=== PATIENT | male | born 1990 | race African-American/Black ===

== ENCOUNTER 2019-04-17 16:04 | Emergency (ER) | END 2019-04-17 17:40 | disposition left against medical advice (07) | LOC: ER 16:04 | DX: Z53.21 Procedure and treatment not carried out due to patient leaving prior to being seen by health care provider (principal) ==

== ENCOUNTER 2019-07-29 04:01 | Emergency (ER) | payer SELFPAY ==
[2019-07-29 07:50] VITALS: BP 128/82
[2019-07-29 08:09] LABS: ABSOLUTE EOSINOPHILS # (AUTO) 0.1 10^3/uL (0.0-0.6); ABSOLUTE LYMPHOCYTES (AUTO) 1.5 10^3/uL (0.5-4.7); ABSOLUTE MONOCYTES (AUTO) 0.6 10^3/uL (0.1-1.4); ABSOLUTE NEUT (AUTO) 1.6 10^3/uL (1.7-8.2); BASOPHILS % (AUTO) 0.9 % (0-2); EOSINOPHILS % (AUTO) 3.2 % (0-6); HEMATOCRIT 41.5 % (37.9-51.0); HEMOGLOBIN 14.6 g/dL (13.5-17.0); LYMPHOCYTES % (AUTO) 38.9 % (13-45); MEAN CORPUSCULAR HEMOGLOBIN 34.2 pg (27.0-33.4); MEAN CORPUSCULAR HGB CONC 35.1 g/dL (32.0-36.0); MEAN CORPUSCULAR VOLUME 97 fl (80-97); MONOCYTES % (AUTO) 15.7 % (3-13); PLATELET COUNT 182 10^3/uL (150-450); RED BLOOD COUNT 4.26 10^6/uL (4.35-5.55); RED CELL DISTRIBUTION WIDTH 12.5 % (11.5-14.0); SEGMENTED NEUTROPHILS % (AUTO) 41.3 % (42-78); TOTAL CELLS COUNTED % (AUTO) 100 %; WHITE BLOOD COUNT 3.9 10^3/uL (4.0-10.5)
--- NOTE | 2019-07-29 08:11 | ER Document Report ---
ED Cardiac - General Chief Complaint: Chest Pain Stated Complaint: CHEST PAIN Time Seen by Provider: 07/29/19 08:01 Notes: Patient is a 28-year-old male who presents the emergency department with a chief complaint of chest pain. Patient states that the pain has been on and off for the past 2 months. Patient states that it is a sharp, stabbing feeling. Sometimes is short of breath. He has been trying to take mhxi-khc-qacujes antacids, such as Tums, but has had little relief. Patient states that his father had a heart attack in his early 40s. Patient denies any vomiting. TRAVEL OUTSIDE OF THE [place] IN LAST 30 DAYS: No - Related Data Allergies/Adverse Reactions: No Known Allergies Allergy (Verified 04/17/19 16:07) Past Medical History - Social History Smoking Status: Never Smoker Frequency of alcohol use: Rare Drug Abuse: Marijuana Family History: Reviewed & Not Pertinent Patient has suicidal ideation: No Patient has homicidal ideation: No Review of Systems - Review of Systems Notes: REVIEW OF SYSTEMS: CONSTITUTIONAL : Denies recent illness. Denies recent unintentional weight loss. Denies fever, chills, or sweats. EENT: Denies eye, ear, throat, or mouth pain, discharge, or symptoms. Denies nasal or sinus congestion. CARDIOVASCULAR: See HPI. RESPIRATORY: See HPI. GASTROINTESTINAL: Denies nausea, vomiting, and diarrhea. Denies abdominal pain. Denies constipation. GENITOURINARY: Denies difficulty urinating, burning, blood in urine, urgency or frequency. MUSCULOSKELETAL: Denies neck and back pain. Denies joint pain or swelling. SKIN: Denies rash, itchiness, or lesions HEMATOLOGIC : Denies easy bruising or bleeding. LYMPHATIC: Denies swollen, painful, enlarged glands. NEUROLOGICAL: Denies no numbness or tingling denies weakness. Denies headache. Denies altered mental status. Denies alteration in speech. PSYCHIATRIC: Denies stress, anxiety, alteration in sleep patterns, or depression. All other systems reviewed and negative. Physical Exam - Vital signs Vitals: Temp Pulse Resp BP Pulse Ox 97.9 F 70 20 140/87 H 100 07/29/19 04:11 07/29/19 04:11 07/29/19 04:11 07/29/19 04:11 07/29/19 04:11 - Notes Notes: PHYSICAL EXAMINATION: GENERAL: Appears well, healthy, well-nourished, no acute distress. HEAD: Normocephalic, atraumatic. EYES: PERRL, conjunctiva normal, all extraocular movements intact, sclera nonicteric ENT: Moist mucous membranes. NECK: Supple, no noticeable swelling, redness, rash. Normal range of motion. LUNGS: Equal breath sounds bilaterally and clear to auscultation. No wheezes rales or rhonchi. CARDIOVASCULAR: S1-S2, regular rate, regular rhythm. Radial pulses 2+, normal. ABDOMEN: Normoactive bowel sounds. Soft, nontender, no guarding, no rebound tenderness, and no masses palpated. EXTREMITIES: Normal strength and range of motion, no pitting or edema. No cyanosis. NEUROLOGICAL: Moves all extremities upon command. Strength 5/5 in all extremities. PSYCH: Normal mood, normal affect. SKIN: Warm, dry. No rash, lesions, ulcerations noted. Normal skin turgor. Course - Re-evaluation Re-evalutation: 07/29/19 08:12 The patient has chosen to leave the facility against medical advice. The relevant issues have been reviewed and discussed with the patient and family at the bedside. At the time of this assessment there is no indication for involuntary commitment. The patient is alert, oriented, and able to express clearly their reasoning for not wanting to remain in the emergency department for further treatment. The patient is not clinically psychotic, intoxicated, and denies and suicidal ideation. Differential or suspected diagnoses based on medical screening exam: GERD, gastritis, AMI (less likely), pulmonary emboli (less likely). The patient is aware of the concerning diagnoses and acknowledges understanding of the reasons for the following recommendations: To return for further evaluation. The following recommendations/services were offered and refused: To stay and to have interpretation of lab results. The following risks were explained: , permanent disability, loss of function, continuing chest pain. Clinical impression: Patient is competent to make decisions regarding the m edical that is being offered. - Vital Signs Vital signs: Temp Pulse Resp BP Pulse Ox 98.2 F 65 16 128/82 H 99 07/29/19 07:49 07/29/19 07:49 07/29/19 07:49 07/29/19 07:49 07/29/19 07:49 - Laboratory Result Diagrams: 07/29/19 07:47 07/29/19 07:47 - EKG Interpretation by Me Additional EKG results interpreted by me: 07/29/19 08:11 Sinus rhythm. Rate 60. FL 196; QRS 84; QT 392; QTc 392. No ST elevations or depressions noted. Discharge - Discharge Clinical Impression: Chest pain Qualifiers: Chest pain type: unspecified Qualified Code(s): R07.9 - Chest pain, unspecified Condition: Stable Disposition: AGAINST MEDICAL ADVICE
[2019-07-29 08:18] LABS: ALBUMIN 4.1 g/dL (3.5-5.0); ALKALINE PHOSPHATASE 38 U/L (38-126); ANION GAP 7 (5-19); ASPARTATE AMINO TRANSFERASE 31 U/L (17-59); BILIRUBIN,TOTAL 0.4 mg/dL (0.2-1.3); BLOOD UREA NITROGEN 6 mg/dL (7-20); CALCIUM 9.3 mg/dL (8.4-10.2); CARBON DIOXIDE 28 mmol/L (22-30); CHLORIDE 108 mmol/L (98-107); CREATINE KINASE 151 U/L (55-170); GLUCOSE 104 mg/dL (75-110); POTASSIUM 4.2 mmol/L (3.6-5.0); TOTAL PROTEIN 6.9 g/dL (6.3-8.2)
[2019-07-29 08:30] LABS: CREATINE KINASE MB 1.53 ng/mL (<4.55)
[2019-07-29 08:35] LABS: TROPONIN I < 0.012 ng/mL
[2019-07-29 09:43] LABS: URINE AMPHETAMINES SCREEN NEGATIVE; URINE BARBITURATES SCREEN NEGATIVE; URINE BENZODIAZEPINES SCREEN NEGATIVE; URINE COCAINE SCREEN NEGATIVE; URINE METHADONE SCREEN NEGATIVE; URINE PHENCYCLIDINE SCREEN NEGATIVE
[2019-07-29 09:45] LABS: URINE MARIJUANA (THC) SCREEN UNCONFIRMED POSITIVE
--- NOTE | 2019-07-30 11:49 | EKG REPORT ---
SEVERITY:- ABNORMAL ECG - SINUS RHYTHM NONSPECIFIC T ABNORMALITIES, INFERIOR LEADS : Confirmed by: Vy Teresa MD 30-Jul-2019 11:48:32
== END 2019-07-29 08:20 | disposition left against medical advice (07) ==
LOC: ER 04:01
DX: R07.9 Chest pain, unspecified (principal); R06.02 Shortness of breath; F12.10 Cannabis abuse, uncomplicated; Z82.49 Family history of ischemic heart disease and other diseases of the circulatory system; Z53.20 Procedure and treatment not carried out because of patient's decision for unspecified reasons
CPT/HCPCS: 36415; 80053; 80307; 82550; 82553; 84484; 85025; 93005; 93010; 99285

== ENCOUNTER 2019-07-30 10:47 | Emergency (ER) | payer SELFPAY ==
[2019-07-30] MEDS ORDERED: ASPIRIN 81 MG TABLET, CHEWABLE PO ONE (11:16)
--- NOTE | 2019-07-30 11:18 | ER Document Report ---
ED Medical Screen (RME) - General Chief Complaint: Chest Pain Stated Complaint: CHEST PAIN Time Seen by Provider: 07/30/19 11:11 Mode of Arrival: Ambulatory Information source: Patient Notes: 28-year-old male presents today with complaints of midsternal chest pain for the past 3 to 4 months on and off. He reports the chest pain will come no matter what he is doing sitting at rest or working. Also reports he had syncopal episodes 3-4 times in the past year. Reports his father at a young age from a heart attack. He denies IV drug use. Denies past medical history such as asthma cardiac disease diabetes. Patient reports he smokes marijuana does not vape. Denies cocaine, cold medications denies recent trip denies energy drinks. Patient was seen here yesterday but eloped before he received his results. Dictation of this chart was performed using voice recognition software; therefore, there may be some unintended grammatical errors. I have greeted and performed a rapid initial assessment of this patient. A comprehensive ED assessment and evaluation of the patient, analysis of test results and completion of the medical decision making process will be conducted by additional ED providers. TRAVEL OUTSIDE OF THE [place] IN LAST 30 DAYS: No - Related Data Allergies/Adverse Reactions: No Known Allergies Allergy (Verified 07/30/19 10:58) Past Medical History - Social History Frequency of alcohol use: None Drug Abuse: Marijuana
--- NOTE | 2019-07-30 11:49 | EKG REPORT ---
SEVERITY:- ABNORMAL ECG - SINUS RHYTHM NONSPECIFIC T ABNORMALITIES, INFERIOR LEADS : Confirmed by: Vy Teresa MD 30-Jul-2019 11:48:29
[2019-07-30 11:52] LABS: ABSOLUTE EOSINOPHILS # (AUTO) 0.1 10^3/uL (0.0-0.6); ABSOLUTE LYMPHOCYTES (AUTO) 1.4 10^3/uL (0.5-4.7); ABSOLUTE MONOCYTES (AUTO) 0.5 10^3/uL (0.1-1.4); ABSOLUTE NEUT (AUTO) 1.8 10^3/uL (1.7-8.2); BASOPHILS % (AUTO) 0.6 % (0-2); EOSINOPHILS % (AUTO) 2.5 % (0-6); HEMOGLOBIN 14.7 g/dL (13.5-17.0); LYMPHOCYTES % (AUTO) 36.1 % (13-45); MEAN CORPUSCULAR HGB CONC 34.9 g/dL (32.0-36.0); MEAN CORPUSCULAR VOLUME 97 fl (80-97); MONOCYTES % (AUTO) 12.9 % (3-13); PLATELET COUNT 185 10^3/uL (150-450); RED BLOOD COUNT 4.32 10^6/uL (4.35-5.55); RED CELL DISTRIBUTION WIDTH 12.2 % (11.5-14.0); SEGMENTED NEUTROPHILS % (AUTO) 47.9 % (42-78); TOTAL CELLS COUNTED % (AUTO) 100 %; WHITE BLOOD COUNT 3.8 10^3/uL (4.0-10.5)
[2019-07-30 12:09] LABS: ALBUMIN 4.2 g/dL (3.5-5.0); ALKALINE PHOSPHATASE 36 U/L (38-126); ANION GAP 7 (5-19); ASPARTATE AMINO TRANSFERASE 34 U/L (17-59); BILIRUBIN,DIRECT 0.1 mg/dL (0.0-0.4); BILIRUBIN,TOTAL 0.5 mg/dL (0.2-1.3); BLOOD UREA NITROGEN 10 mg/dL (7-20); CALCIUM 9.4 mg/dL (8.4-10.2); CARBON DIOXIDE 27 mmol/L (22-30); CHLORIDE 105 mmol/L (98-107); GLUCOSE 111 mg/dL (75-110); POTASSIUM 4.1 mmol/L (3.6-5.0)
--- NOTE | 2019-07-30 12:37 | RADIOLOGY REPORT (SQ) ---
EXAM DESCRIPTION: CHEST 2 VIEWS COMPLETED DATE/TIME: 07/30/2019 12:29 pm REASON FOR STUDY: chest pain COMPARISON: None. EXAM PARAMETERS: NUMBER OF VIEWS: two views TECHNIQUE: Digital Frontal and Lateral radiographic views of the chest acquired. RADIATION DOSE: NA LIMITATIONS: none FINDINGS: LUNGS AND PLEURA: Minimal bandlike atelectasis in the right posterior costophrenic sulcus. Lungs are otherwise free of focal infiltrates. No pleural effusion. No pneumothorax. MEDIASTINUM AND HILAR STRUCTURES: No masses or contour abnormalities. HEART AND VASCULAR STRUCTURES: Heart normal size. No evidence for failure. BONES: No acute findings. HARDWARE: None in the chest. OTHER: No other significant finding. IMPRESSION: Minimal posterior right basilar atelectasis. TECHNICAL DOCUMENTATION: JOB ID: [id number] [employer]- All Rights Reserved Reading location - IP/workstation name: [email or web address]
[2019-07-30 13:44] VITALS: BP 140/97
== END 2019-07-30 13:47 | disposition left against medical advice (07) ==
LOC: ER 10:47
DX: Z53.21 Procedure and treatment not carried out due to patient leaving prior to being seen by health care provider (principal); R07.9 Chest pain, unspecified; F12.90 Cannabis use, unspecified, uncomplicated
CPT/HCPCS: 36415; 71046; 80053; 84484; 85025; 93005; 93010; 99285

== ENCOUNTER 2019-09-07 19:17 | Emergency (ER) | payer SELFPAY ==
[2019-09-07 19:50] VITALS: BP 129/75
[2019-09-07] MEDS ORDERED: IBUPROFEN 600 MG TABLET PO ONE (20:41)
[2019-09-07] MEDS ORDERED: ACETAMINOPHEN 325 MG TABLET PO ONE (20:41)
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
--- NOTE | 2019-09-07 21:52 | RADIOLOGY REPORT (SQ) ---
EXAM DESCRIPTION: XR CHEST 2 VIEWS COMPLETED DATE/TME: 09/07/2019 20:41 CLINICAL HISTORY: 28 years, Male, fever/cough EXAM DESCRIPTION: CLINICAL HISTORY: fever/cough COMPARISON: None. FINDINGS: Two views of the chest are submitted. Cardiac silhouette appears normal. No focal parenchymal or pleural disease. No acute bony abnormality. There is no significant pulmonary vascular engorgement. IMPRESSION: No evidence of acute cardiopulmonary disease.
[2019-09-07 22:01] LABS: A TYPE INFLUENZA AG NEGATIVE (NEGATIVE)
[2019-09-07 22:02] LABS: B INFLUENZA AG NEGATIVE (NEGATIVE)
--- NOTE | 2019-09-08 16:26 | EKG REPORT ---
SEVERITY:- NORMAL ECG - SINUS RHYTHM : Confirmed by: Vy Teresa MD 08-Sep-2019 16:25:34
== END 2019-09-07 23:00 | disposition left against medical advice (07) ==
LOC: ER 19:17
DX: R05 Cough (principal); R50.9 Fever, unspecified; J34.89 Other specified disorders of nose and nasal sinuses; F12.10 Cannabis abuse, uncomplicated
CPT/HCPCS: 71046; 87804; 93005; 93010; 99281

== ENCOUNTER 2019-09-08 16:35 | Emergency (ER) | payer SELFPAY ==
--- NOTE | 2019-09-08 18:47 | ER Document Report ---
HPI - HPI Time Seen by Provider: 09/08/19 18:38 Notes: 28-year-old male patient presenting with flulike symptoms. Patient reports he was seen here earlier, had testing done but had to leave prior to receiving results. Patient has no new complaints. Past Medical History - General Information source: Patient - Social History Smoking Status: Never Smoker Frequency of alcohol use: None Drug Abuse: None Family History: Reviewed & Not Pertinent - Medical History Medical History: Negative Past Surgical History: Reports: None - Immunizations Immunizations up to date: Yes Vertical Provider Document - CONSTITUTIONAL Notes: PHYSICAL EXAMINATION: GENERAL: Well-appearing, well-nourished and in no acute distress. HEAD: Atraumatic, normocephalic. EYES: Pupils equal round extraocular movements intact, conjunctiva are normal. ENT: Nares patent NECK: Normal range of motion LUNGS: No respiratory distress Musculoskeletal: Normal range of motion NEUROLOGICAL: Normal speech, normal gait. PSYCH: Normal mood, normal affect. SKIN: Warm, Dry, normal turgor, no rashes or lesions noted. - INFECTION CONTROL TRAVEL OUTSIDE OF THE [place] IN LAST 30 DAYS: No Course - Re-evaluation Re-evalutation: Patient appears well, nontoxic. Discussed patient's test results from previous visit. Patient's testing was negative. Patient likely has influenza however he tested negative. Discussed symptomatic treatment with patient. Patient verb alized understanding and agreement with plan, discussed understanding of ED return precautions. - Vital Signs Vital signs: Temp Pulse Resp BP Pulse Ox 98.4 F 89 18 163/87 H 98 09/08/19 16:55 09/08/19 16:55 09/08/19 16:55 09/08/19 16:55 09/08/19 16:55 Discharge - Discharge Clinical Impression: Flu-like symptoms Condition: Stable Disposition: HOME, SELF-CARE Additional Instructions: Your symptoms are consistent with a flulike illness. Last night when I tested you tested negative for flu a and flu B. This test is not very sensitive however so you may indeed have the flu. There is also a viral upper respiratory illness going around that mimics the flu. Please take the steroids as prescribed. Continue taking [id number] medications as discussed. Please are taking ibuprofen 600 mg every 6 hours to help with fever and body aches. Return to the emergency department with any new or worsening symptoms. Prescriptions: Prednisone [Deltasone 20 mg Tablet] 3 tab PO DAILY 5 Days #15 tablet Forms: Return to Work
[2019-09-08 18:51] VITALS: BP 135/83
== END 2019-09-08 18:53 | disposition home or self-care (01) ==
LOC: ER 16:35
DX: R68.89 Other general symptoms and signs (principal)
CPT/HCPCS: 99283

== ENCOUNTER 2020-04-11 01:44 | Emergency (ER) | payer SELFPAY ==
[2020-04-11 01:53] VITALS: BP 135/85
[2020-04-11] MEDS ORDERED: CEPHALEXIN 500 MG CAPSULE PO ONE (02:32)
--- NOTE | 2020-04-11 02:33 | ER Document Report ---
HPI - HPI Time Seen by Provider: 04/11/20 02:25 Pain Level: 3 Notes: Otherwise healthy 29-year-old male presents emergency department concern for pain to his right lower extremity. Patient reports there is pain, erythema and itchiness to the inner thigh. He denies any history of abscesses, denies any history of DVT. He reports the symptoms have been present for 2 days. - ROS Systems Reviewed and Negative: Yes All other systems reviewed and negative - REPRODUCTIVE Reproductive: DENIES: : - DERM Skin Color: Erythema Past Medical History - General Information source: Patient - Social History Smoking Status: Current Some Day Smoker Frequency of alcohol use: None Drug Abuse: None Family History: Reviewed & Not Pertinent Patient has homicidal ideation: No Pulmonary Medical History: Reports: Hx Bronchitis Past Surgical History: Reports: Hx Abdominal Surgery - Immunizations Immunizations up to date: Yes Vertical Provider Document - CONSTITUTIONAL Notes: PHYSICAL EXAMINATION: GENERAL: Well-appearing, well-nourished and in no acute distress. HEAD: Atraumatic, normocephalic. EYES: Pupils equal round extraocular movements intact, conjunctiva are normal. ENT: Nares patent NECK: Normal range of motion LUNGS: No respiratory distress Musculoskeletal: Normal range of motion NEUROLOGICAL: Normal speech, normal gait. PSYCH: Normal mood, normal affect. SKIN: Erythema noted to right inner thigh, no mamie abscess. - INFECTION CONTROL TRAVEL OUTSIDE OF THE [place] IN LAST 30 DAYS: No Course - Re-evaluation Re-evalutation: Patient appears to have cellulitis to his right inner thigh. He will be started on antibiotics. The area has been marked with a surgical marker. Patient encouraged to return to the emergency department for any new or worsening symptoms. - Vital Signs Vital signs: Temp Pulse Resp BP Pulse Ox 97.5 F 65 16 135/85 H 97 04/11/20 01:48 04/11/20 01:48 04/11/20 01:48 04/11/20 01:48 04/11/20 01:48 Discharge - Discharge Clinical Impression: Cellulitis Qualifiers: Site of cellulitis: extremity Site of cellulitis of extremity: lower extremity Laterality: right Qualified Code(s): L03.115 - Cellulitis of right lower limb Condition: Stable Disposition: HOME, SELF-CARE Additional Instructions: The rash is likely due to infection of your skin. You need to take the antibiotics as prescribed. Do not stop even if the rash goes away until you have completed all the antibiotics. The area of redness was traced out here in the emergency department with a marking pen. You need to return to emergency department if the redness spreads outside of this area by more than 2 cm in any direction. You should also return if you develop fevers with temperature greater than 101, persistent vomiting, worsening pain, or have any other s ymptoms that are concerning to you. Prescriptions: Cephalexin [Keflex] 500 mg PO BID #14 capsule
== END 2020-04-11 02:41 | disposition home or self-care (01) ==
LOC: ER 01:44
DX: L03.115 Cellulitis of right lower limb (principal); M79.604 Pain in right leg; F17.200 Nicotine dependence, unspecified, uncomplicated
CPT/HCPCS: 99283

== ENCOUNTER 2020-04-11 10:17 | Emergency (ER) | payer SELFPAY ==
--- NOTE | 2020-04-11 10:33 | ER Document Report ---
ED Medical Screen (RME) - General Chief Complaint: Leg Pain Stated Complaint: RIGHT LEG PAIN,SWELLING Time Seen by Provider: 04/11/20 10:30 Information source: Patient Notes: This 29-year-old male presents to the emergency room today stating he is here for reevaluation he was seen here last night treated for a cellulitis provided a prescription for Keflex they did put a poli on his leg and his significant other feels as though the inflammation has come outside the outline. His lower extremity is rather tender and he does have some difficulty ambulating on it. TRAVEL OUTSIDE OF THE [place] IN LAST 30 DAYS: No - Related Data Allergies/Adverse Reactions: No Known Allergies Allergy (Verified 04/11/20 02:24) Past Medical History Pulmonary Medical History: Reports: Hx Bronchitis Past Surgical History: Reports: Hx Abdominal Surgery - Immunizations Immunizations up to date: Yes Physical Exam - Vital signs Vitals: Temp Pulse Resp BP Pulse Ox 97.7 F 73 18 142/98 H 97 04/11/20 10:22 04/11/20 10:22 04/11/20 10:22 04/11/20 10:22 04/11/20 10:22 Course - Vital Signs Vital signs: Temp Pulse Resp BP Pulse Ox 97.7 F 73 18 142/98 H 97 04/11/20 10:22 04/11/20 10:22 04/11/20 10:22 04/11/20 10:22 04/11/20 10:22
[2020-04-11] MEDS ORDERED: LIDOCAINE 1% INJ-PF (10 MG/ML) 30 ML SDV NEB ONE (10:35)
[2020-04-11] MEDS ORDERED: CEFTRIAXONE INJ 1000 MG VIAL IM ONE (10:35)
--- NOTE | 2020-04-11 10:35 | ER Document Report ---
HPI - HPI Time Seen by Provider: 04/11/20 10:30 Onset: Yesterday Onset/Duration: Sudden Quality of pain: Achy Context: This 29-year-old male presents to the emergency room today for reevaluation diagnosis of cellulitis last evening to his right medial thigh. His states that she feels that the area of inflammation has crossed over the black poli. Patient does have quite a bit of difficulty ambulating on it and the area is tender. Associated Symptoms: None Exacerbated by: Denies Relieved by: Denies - REPRODUCTIVE Reproductive: DENIES: : Past Medical History - General Information source: Patient - Social History Smoking Status: Never Smoker Cigarette use (# per day): No Chew tobacco use (# tins/day): No Smoking Education Provided: No Frequency of alcohol use: None Drug Abuse: None Lives with: Family Family History: Reviewed & Not Pertinent Pulmonary Medical History: Reports: Hx Bronchitis Past Surgical History: Reports: Hx Abdominal Surgery - Immunizations Immunizations up to date: Yes Vertical Provider Document - CONSTITUTIONAL Agree With Documented VS: Yes - INFECTION CONTROL TRAVEL OUTSIDE OF THE [place] IN LAST 30 DAYS: No - HEENT HEENT: Atraumatic, Normocephalic, PERRLA - NECK Neck: Normal Inspection - RESPIRATORY Respiratory: Breath Sounds Normal - CARDIOVASCULAR Cardiovascular: Regular Rate, Regular Rhythm - GI/ABDOMEN Gastrointestinal: Abdomen Soft, Abdomen Non-Tender - BACK Back: Normal Inspection - MUSCULOSKELETAL/EXTREMETIES Musculoskeletal/Extremeties: MAEW, FROM - NEURO Level of Consciousness: Awake, Alert, Appropriate Course - Re-evaluation Re-evalutation: 04/11/20 12:28 The cell technician from cardiology called to indicate that the patient's ultrasound was negative. The radiology results will be uploaded to the chart later. Of time. - Vital Signs Vital signs: Temp Pulse Resp BP Pulse Ox 97.7 F 73 18 142/98 H 97 04/11/20 10:22 04/11/20 10:22 04/11/20 10:22 04/11/20 10:22 04/11/20 10:22 - Laboratory Result Diagrams: 04/11/20 10:56 04/11/20 10:56 Laboratory results interpreted by me: 04/11/20 12:28 Labs- All tests 24 hr 04/11/20 04/11/20 10:56 10:56 WBC 4.5 RBC 4.44 Hgb 15.0 Hct 42.9 MCV 97 MCH 33.8 H MCHC 35.0 RDW 12.3 Plt Count 173 Lymph % (Auto) 31.4 Marshall % (Auto) 15.8 H Eos % (Auto) 4.3 Baso % (Auto) 0.5 Absolute Neuts (auto) 2.2 Absolute Lymphs (auto) 1.4 Absolute Monos (auto) 0.7 Absolute Eos (auto) 0.2 Absolute Basos (auto) 0.0 Seg Neutrophils % 48.0 Sodium 138.6 Potassium 4.3 Chloride 107 Carbon Dioxide 25 Anion Gap 7 BUN 12 Creatinine 1.00 Est GFR ( Amer) > 60 Est GFR (MDRD) Non-Af > 60 Glucose 100 Calcium 9.7 Total Bilirubin 0.6 Direct Bilirubin 0.0 Neonat Total Bilirubin Not Reportable Neonat Direct Bilirubin Not Reportable Neonat Indirect Bili Not Reportable AST 27 ALT 28 Alkaline Phosphatase 53 Total Protein 7.7 Albumin 4.5 Discharge - Discharge Clinical Impression: Acute allergic reaction Qualifiers: Encounter type: initial encounter Qualified Code(s): T78.40XA - Allergy, unspecified, initial encounter Insect bite Qualifiers: Encounter type: initial encounter Site of insect bite: thigh Laterality: right Qualified Code(s): S70.361A - Insect bite (nonvenomous), right thigh, initial encounter; W57.XXXA - Bitten or stung by nonvenomous insect and other nonvenomous arthropods, initial encounter Condition: Good Disposition: HOME, SELF-CARE Instructions: Insect Bites ([facility]) Additional Instructions: Warm compresses to the affected area. Follow-up with private doctor in 1 to 2 days for final radiology readings please return to the emergency room for any change worsening condition. Follow up with private M.D. for all other routine health care needs.
[2020-04-11] MEDS ORDERED: DIPHENHYDRAMINE HCL 25 MG CAPSULE PO ONE (10:40)
[2020-04-11 11:15] LABS: ABSOLUTE EOSINOPHILS # (AUTO) 0.2 10^3/uL (0.0-0.6); ABSOLUTE LYMPHOCYTES (AUTO) 1.4 10^3/uL (0.5-4.7); ABSOLUTE MONOCYTES (AUTO) 0.7 10^3/uL (0.1-1.4); ABSOLUTE NEUT (AUTO) 2.2 10^3/uL (1.7-8.2); BASOPHILS % (AUTO) 0.5 % (0-2); EOSINOPHILS % (AUTO) 4.3 % (0-6); HEMATOCRIT 42.9 % (37.9-51.0); LYMPHOCYTES % (AUTO) 31.4 % (13-45); MEAN CORPUSCULAR HEMOGLOBIN 33.8 pg (27.0-33.4); MEAN CORPUSCULAR VOLUME 97 fl (80-97); MONOCYTES % (AUTO) 15.8 % (3-13); PLATELET COUNT 173 10^3/uL (150-450); RED BLOOD COUNT 4.44 10^6/uL (4.35-5.55); RED CELL DISTRIBUTION WIDTH 12.3 % (11.5-14.0); TOTAL CELLS COUNTED % (AUTO) 100 %; WHITE BLOOD COUNT 4.5 10^3/uL (4.0-10.5)
[2020-04-11 11:19] LABS: ALBUMIN 4.5 g/dL (3.5-5.0); ALKALINE PHOSPHATASE 53 U/L (38-126); ANION GAP 7 (5-19); ASPARTATE AMINO TRANSFERASE 27 U/L (17-59); BILIRUBIN,TOTAL 0.6 mg/dL (0.2-1.3); BLOOD UREA NITROGEN 12 mg/dL (7-20); CALCIUM 9.7 mg/dL (8.4-10.2); CARBON DIOXIDE 25 mmol/L (22-30); CHLORIDE 107 mmol/L (98-107); GLUCOSE 100 mg/dL (75-110); POTASSIUM 4.3 mmol/L (3.6-5.0); TOTAL PROTEIN 7.7 g/dL (6.3-8.2)
--- NOTE | 2020-04-11 12:35 | RADIOLOGY REPORT (SQ) ---
EXAM DESCRIPTION: VENOUS UNILATERAL LOWER IMAGES COMPLETED DATE/TIME: 04/11/2020 12:26 pm REASON FOR STUDY: pain COMPARISON: None. TECHNIQUE: Dynamic and static frankel scale and color images acquired of the right leg venous system. S elected spectral images acquired with additional compression and augmentation maneuvers. The contrala teral common femoral vein and saphenofemoral junction were also imaged. Images stored on PACS. LIMITATIONS: None. FINDINGS: COMMON FEMORAL: Normal phasicity, compression and augmentation. No visualized echogenic ma terial on frankel scale. No defects on color images. FEMORAL: Normal compression and augmentation. No visualized echogenic material on frankel scale. No defe cts on color images. POPLITEAL: Normal compression, augmentation. No visualized echogenic material on frankel scale. No defec ts on color images. CALF VESSELS: Normal compression, augmentation. No visualized echogenic material on frankel scale. No de fects on color images. GSV and SSV: Normal compression, augmentation. No visualized echogenic material on frankel scale. No def ects on color images. ANY DEEP VENOUS INSUFFICIENCY: Not evaluated. ANY EVIDENCE OF POPLITEAL CYST: No. OTHER: No other significant finding. CONTRALATERAL COMMON FEMORAL VEIN AND SAPHENOFEMORAL JUNCTION: Normal phasicity, compression and augmentation. No visualized echogenic material on frankel scale. No de fects on color images. IMPRESSION: NO EVIDENCE OF DVT OR SVT IN THE RIGHT LEG. TECHNICAL DOCUMENTATION: JOB ID: [id number] 2010 [employer]- All Rights Reserved Reading location - IP/workstation name: [email or web address]
[2020-04-11 12:51] VITALS: BP 138/88
== END 2020-04-11 12:50 | disposition home or self-care (01) ==
LOC: ER 10:17
DX: L03.115 Cellulitis of right lower limb (principal)
CPT/HCPCS: 99283; 36415; 85025; 80053; 93971; J3490; J0696

== ENCOUNTER 2020-05-05 18:22 | Emergency (ER) | payer SELFPAY ==
[2020-05-05] MEDS ORDERED: ONDANSETRON 4 MG TAB.RAPDIS PO ONE (19:10)
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
--- NOTE | 2020-05-05 19:53 | RADIOLOGY REPORT (SQ) ---
EXAM DESCRIPTION: CHEST SINGLE VIEW IMAGES COMPLETED DATE/TIME: 05/05/2020 7:43 pm REASON FOR STUDY: COUGH/SOB COMPARISON: 09/07/2019 TECHNIQUE: Single frontal radiographic view of the chest acquired. NUMBER OF VIEWS: One view. LIMITATIONS: None. FINDINGS: LUNGS AND PLEURA: No pneumothorax. No consolidation or pleural effusion. MEDIASTINUM AND HILAR STRUCTURES: Stable. HEART AND VASCULAR STRUCTURES: Stable. BONES: No acute findings. HARDWARE: None in the chest. OTHER: No other significant finding. IMPRESSION: NO ACUTE FINDINGS. TECHNICAL DOCUMENTATION: JOB ID: [id number] [id number] 2010 [employer]- All Rights Reserved Reading location - IP/workstation name: [email or web address]
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
[2020-05-05 21:21] VITALS: BP 138/99
== END 2020-05-05 21:20 | disposition home or self-care (01) ==
LOC: ER 18:22
DX: R11.2 Nausea with vomiting, unspecified (principal); R19.7 Diarrhea, unspecified; M79.10 Myalgia, unspecified site; R09.81 Nasal congestion; R05 Cough; Z20.828 Contact with and (suspected) exposure to other viral communicable diseases; F12.10 Cannabis abuse, uncomplicated
CPT/HCPCS: 99284; 87070; 87880; 87635; 71045; S0119; C9803